=== PATIENT | female | born 1940 | race Caucasian/White ===

== ENCOUNTER → 2016-07-21 | Outpatient (CLI) | payer MEDICARE, BC ==
[2016-07-21 20:49] LABS: Blood Urea Nitrogen 21 mg/dL (7-17); Non-African American GFR(MDRD) 60 (>60 ml/min/1.73 sqM)
--- NOTE | 2016-07-22 09:05 | MR ---
MRI liver with and without contrast HISTORY: Cirrhosis Correlation to prior MRI liver with and without contrast 24 January 2015 Multiplanar multisequence and postcontrast images obtained through liver following 10 cc MultiHance I V. FINDINGS: There is motion on the exam which may limit sensitivity Irregular shape and contour of the liver is again noted. Cystic focus at the dome is stable. Gallblad danielle is inverted and courses in the subdiaphragmatic location as on prior, the gallbladder shows a thi ckened wall possibly due to ascites. There is some interval development of minimal ascites about the liver. There is no new enhancement within the liver to suggest hepatocellular carcinoma. Large varices are p resent in the upper abdomen and about the gastroesophageal junction as on prior exam. There are changes of anasarca. No retroperitoneal adenopathy. Aorta is patent. Hepatic veins, portal vein are patent. Mild ectasia of the pancreatic duct in the body is again seen. No pleural effusions evident. Small bowel folds are somewhat thickened. IMPRESSION: Interval development of ascites and findings within the gallbladder is described. Anasarc a. Evidence of portal hypertension with portosystemic shunt and cirrhosis compatible with patient's h istory. Additional nonspecific findings described above. There is motion on the exam.
== END | disposition home or self-care (01) ==
LOC: RADMRIMAIN 20:02
PROVIDERS: ATTEND Internal Medicine Gastroenterology
DX: R18.8 Other ascites (principal); Z87.19 Personal history of other diseases of the digestive system
CPT/HCPCS: 82565; 84520; 74183; A9577

== ENCOUNTER 2016-10-22 11:04 | Day surgery (SDC) | payer MEDICARE, BC ==
[2016-10-19 16:14] VITALS: BMI 20.7
[~2016-10-22 11:04] MED LIST: LACTATED RINGERS 1,000 ML IV SCH; LIDOCAINE 1% 20 ML VIAL (10MG/ML) FOR IV START INTRADERMA PRN
[2016-10-22 12:11] VITALS: TEMP 97.8
[2016-10-22] MEDS ORDERED: PROPOFOL 10 MG/ML 20 ML VIAL IV ONE (12:59)
--- NOTE | 2016-10-22 13:19 | P.PCN ---
Date of Procedure: 10/22/16 Preoperative Diagnosis: Postoperative Diagnosis: Procedure(s) Performed: BRIEF HISTORY: Patient is a 76-year-old, pleasant, white female, with history of primary biliary cirrhosis/cirrhosis of the liver and prior history of esophageal variceal bleeding is scheduled for an upper endoscopy with variceal ligation because of prior history of esophageal variceal bleeding. Last EGD with variceal ligation was done a year ago. PROCEDURE PERFORMED: Esophagogastroduodenoscopy with variceal ligation. PREOPERATIVE DIAGNOSIS: Primary biliary cirrhosis/history of esophageal variceal bleeding in the past. IV sedation per anesthesia. PROCEDURE: After informed consent was obtained, the patient was brought into the endoscopy unit. IV sedation was administered by Anesthesia under continuous monitoring. Initially the Olympus GIF-140 video endoscope was inserted into the mouth. Esophagus intubated without any difficulty. It was gradually advanced into the stomach and duodenum and carefully examined. The bulb and the second part of the duodenum appeared normal. The scope at this time was withdrawn to the stomach, adequately insufflated with air, and upon careful examination, mucosa of the antrum, body, cardia and the fundus showed changes consistent with mild portal hypertensive gastropathy. No gastric varices seen. The scope was then withdrawn into the esophagus. The GE junction was located at 39 cm from the incisors. There were 3 columns of esophageal varices noted in the distal esophagus, grade 1-2 nonbleeding varices. The rest of the esophagus appeared normal. There were no erosions or ulcerations seen. At this time the scope was removed and esophageal variceal ligation equipment was introduced into the tip of the scope and esophagus reintubated with some difficulty and was advanced into the distal esophagus. Using suction total of 3 bands were deployed in the distal esophagus with no immediate complications and the patient tolerated the procedure well. IMPRESSION: 1. Grade 1/2 distal esophageal varices status post variceal ligation as described above. 2. Mild portal hypertensive gastropathy. RECOMMENDATIONS: The findings of this examination were discussed with the patient as well as her family. She will be on a soft diet today. She'll continue with her same medications. Will plan a repeat EGD with variceal ligation in 6 months. Implants: Indications for Procedure: Operative Findings: Description of Procedure:
[2016-10-22 13:30] VITALS: PULSE 53
[2016-10-22 13:52] VITALS: BP 121/58; RESP 18
== END 2016-10-22 14:05 | disposition home or self-care (01) ==
LOC: ORWHC2ENDO 11:04
PROVIDERS: ATTEND Internal Medicine Gastroenterology
DX: I85.00 Esophageal varices without bleeding (principal); K76.6 Portal hypertension; K31.89 Other diseases of stomach and duodenum; K74.3 Primary biliary cirrhosis; K74.60 Unspecified cirrhosis of liver; Z79.899 Other long term (current) drug therapy; Z88.4 Allergy status to anesthetic agent; Z88.5 Allergy status to narcotic agent
CPT/HCPCS: 43244; J2704

== ENCOUNTER → 2018-05-11 | Outpatient (CLI) | payer MEDICARE, BC ==
--- NOTE | 2018-05-11 10:03 | US ---
EXAMINATION TYPE: US liver DATE OF EXAM: 05/11/2018 COMPARISON: MRI liver July 21, 2016 CLINICAL HISTORY: K74.60 Cirrhosis of liver. EXAM MEASUREMENTS: Liver Length: unable to accurately measure as cannot be visualized in its entirety Gallbladder Wall: 0.7 cm CBD: 0.2 cm Right Kidney: 8.3 x 3.9 x 4.4 cm Technically difficult study due to extensive midline bowel gas, patient is NPO. Pancreas: visualized portions wnl Liver: limited visualization due to extensive bowel gas, visualized portions are heterogeneous. Gallbladder: no stones visualized, unable to see in its entirety. Evidence for sonographic Donnelly's sign: No CBD: wnl Right Kidney: No hydronephrosis or masses seen Suboptimal study due to extensive overlying bowel gas per technologist. Visualized portion of pancrea s is felt within normal limits on images saved. Corresponding MRI shows several thin walled subcentim eter cystic lesions in the mid to distal body for reference coronal image 17 and 20 and larger lesion s images 14 and 15 but are not clearly identified on ultrasound images saved. Visualized portions of liver is heterogeneously hyperechoic with peripheral lobulation. Evaluation for focal masses is subop timal due to the heterogeneity. No new ascites is present. No new ductal dilatation is seen. Gallblad danielle is suboptimally evaluated without shadowing mobile gallstones seen on images saved. Limited image s right kidney show no gross hydronephrosis. IMPRESSION: Markedly suboptimal study with heterogeneous cirrhotic liver only partially imaged. Small amount of ascites on prior MRI is less well-seen on current study. Thin-walled cystic lesions throug hout the pancreatic body on MRI are not clearly identified on ultrasound. Consider further investigat ion with repeat MRI or CT.
== END | disposition home or self-care (01) ==
LOC: RADUSWWP 09:04
PROVIDERS: ATTEND Internal Medicine Gastroenterology
DX: K74.60 Unspecified cirrhosis of liver (principal)
CPT/HCPCS: 76705

== ENCOUNTER 2018-12-20 09:01 | Day surgery (SDC) | payer MEDICARE, BC ==
[2018-12-20 10:25] VITALS: TEMP 98.4
[2018-12-20] MEDS ORDERED: PROPOFOL 10 MG/ML 20 ML VIAL IV ONE (10:58)
--- NOTE | 2018-12-20 11:19 | P.PCN ---
Date of Procedure: 12/20/18 Procedure(s) Performed: Brief history: Patient is a pleasant 78-year-old white female scheduled for an elective upper endoscopy as well as colonoscopy as a part of evaluation of esophageal varices and intermittent rectal bleeding. Last upper endoscopy was done a year ago and had esophageal variceal ligation. Her last colonoscopy was in 2005. Procedure performed: Esophagogastroduodenoscopy Colonoscopy Preoperative diagnosis: Follow-up esophageal varices/history of primary biliary cirrhosis Intermittent rectal bleeding Anesthesia: MAC Procedure: After informed consent was obtained from the patient was brought into the endoscopy unit and IV sedation was administered by anesthesia under continuous monitoring. Initially upper endoscopy was done. The Olympus GF 160 video endoscope was inserted inserted into the mouth and esophagus intubated without any difficulty and was gradually advanced into the stomach and duodenum and carefully examined. The bulb and second part of the duodenum appeared normal. The scope was then withdrawn into the stomach adequately insufflated with air and upon careful examination the antrum and body, cardia and fundus had changes consistent with portal hypertensive gastropathy. No evidence of gastric varices. The scope was then withdrawn into the esophagus. The GE junction was located at 34 cm to the incisors. Small sliding Hiatal hernia noted. It appeared regular with no erythema erosions or ulcerations. Rest of the esophagus appeared normal. No evidence of esophageal varices seen Patient tolerated the procedure well. At this time the patient continued to remain sedation. Initial digital rectal examination was normal. Olympus CF 160 video colonoscope was then inserted into the rectum and gradually advanced to the cecum without any difficulty. Careful examination was performed as the scope was gradually being withdrawn. The prep was excellent. The cecum, ascending colon, transverse colon, descending colon, sigmoid colon and rectum appeared normal. Retroflexion was performed in the rectum and no lesions were noted. Patient tolerated the procedure well. Impression: 1. Upper endoscopy revealed small hiatal hernia and portal hypertensive gastropathy. No evidence of esophageal or gastric varices 2. Colonoscopy revealed grade 2 internal hemorrhoids Recommendations: Findings of this examination were discussed with the patient as well as her family. She was advised to continue the current medications. Be a high-fiber diet and fiber supplements daily. Prep and repeat upper endoscopy in 1-2 years
[2018-12-20 12:01] VITALS: BP 114/67; PULSE 78; RESP 18
== END 2018-12-20 12:01 | disposition home or self-care (01) ==
LOC: ORWHC2ENDO 09:01
PROVIDERS: ATTEND Internal Medicine Gastroenterology
DX: I85.00 Esophageal varices without bleeding (principal); K62.5 Hemorrhage of anus and rectum; K44.9 Diaphragmatic hernia without obstruction or gangrene; K76.6 Portal hypertension; K31.89 Other diseases of stomach and duodenum; K64.8 Other hemorrhoids; D64.9 Anemia, unspecified; K74.3 Primary biliary cirrhosis; I10 Essential (primary) hypertension; Z87.09 Personal history of other diseases of the respiratory system; Z91.09 Other allergy status, other than to drugs and biological substances; Z79.899 Other long term (current) drug therapy; Z88.4 Allergy status to anesthetic agent; Z88.5 Allergy status to narcotic agent
CPT/HCPCS: 45378; 43235; J2704

== ENCOUNTER 2019-07-18 22:51 | Inpatient (IN) | payer MEDICARE, BC ==
[2019-07-18] MEDS ORDERED: METOCLOPRAMIDE 5 MG/ML 2 ML VIAL IVP STA (23:01)
[2019-07-18] MEDS ORDERED: PANTOPRAZOLE 40 MG/10 ML VIAL IVP STA (23:14)
[2019-07-18] MEDS ORDERED: ONDANSETRON 4 MG/2 ML VIAL IVP PRN (23:14)
[2019-07-18] MEDS ORDERED: SODIUM CHLORIDE 0.9% 1,000 ML IV STA (23:14)
[2019-07-18] MEDS ORDERED: ONDANSETRON 4 MG/2 ML VIAL IVP STA (23:14)
--- NOTE | 2019-07-18 23:17 | ED ---
GI Bleed HPI - General Chief complaint: GI Bleed Stated complaint: GI Bleed Time Seen by Provider: 07/18/19 22:53 Source: patient, EMS, RN notes reviewed, old records reviewed Mode of arrival: EMS Limitations: no limitations - History of Present Illness Initial comments: This is an 79-year-old female to the ED for evaluation patient accepted in transfer for positive nausea vomiting coffee-ground emesis. No political organizer or serious abdominal pain mild nausea no vomiting or travel history no sick contacts. Patient is actively nauseous without vomiting. Feels lightheaded and dizzy but not weak. MD complaint: blood streaked emesis, coffee ground emesis -: days(s) Radiation: none Severity scale (1-10): 7 Quality: painless Consistency: constant Improves with: none Context: history of GI bleed, liver disease Associated Symptoms: nausea Treatments Prior to Arrival: none - Related Data Home Medications Medication Instructions Recorded Confirmed Ursodiol 300 mg PO AC-BID 12/01/14 07/18/19 Vit C/E/Zn/Coppr/Lutein/Zeaxan 1 cap PO BID 12/01/14 07/18/19 [Preservision Areds 2 Softgel] Propranolol [Inderal] 20 mg PO DAILY 01/22/15 07/18/19 Cyclobenzaprine [Flexeril] 5 mg PO TID 07/18/19 07/18/19 Docusate [Colace] 100 mg PO BID PRN 07/18/19 07/18/19 Furosemide [Lasix] 80 mg PO DAILY@0730 07/18/19 07/18/19 Naproxen 500 mg PO BID 07/18/19 07/18/19 Spironolactone 100 mg PO DAILY 07/18/19 07/18/19 Allergies Allergy/AdvReac Type Severity Reaction Status Date / Time adhesive AdvReac Rash/Hives Verified 07/18/19 23:12 codeine AdvReac Confusion Verified 07/18/19 23:12 midazolam [From Versed] AdvReac Hallucinati Verified 07/18/19 23:12 ons Review of Systems ROS Statement: Those systems with pertinent positive or pertinent negative responses have been documented in the HPI. ROS Other: All systems not noted in ROS Statement are negative. Past Medical History Past Medical History: Liver Disease Additional Past Medical History / Comment(s): HYPOTENSION, iron deficient anemia. Primary biliary chirrosis. ETIOLOGY UNKNOWN, ESOPHAGEAL VARICES. HX OF PLEURAL EFFUSION WITH THOROCENTESIS History of Any Multi-Drug Resistant Organisms: None Reported Past Surgical History: Appendectomy, Hysterectomy, Orthopedic Surgery Additional Past Surgical History / Comment(s): LEFT TOTAL KNEE LEFT KNEE I&D. LEFT KNEE MENISCES REPAIR. Carpal tunnel release, D&C x2. Bladder suspension. CATARACTS WITH lens implants bilat eyes. EGD WITH BANDING Past Anesthesia/Blood Transfusion Reactions: Previous Problems w/ Anesthesia Additional Past Anesthesia/Blood Transfusion Reaction / Comment(s): STATES VERSED IN PRE OP CAUSED HALLUCINATIONS Past Psychological History: No Psychological Hx Reported Smoking Status: Never smoker Past Alcohol Use History: None Reported Past Drug Use History: None Reported - Past Family History Mother Family Medical History: Cancer Additional Family Medical History / Comment(s): BOWEL General Exam Limitations: no limitations General appearance: alert, in no apparent distress Head exam: Present: atraumatic, normocephalic, normal inspection Eye exam: Present: normal appearance, PERRL, EOMI. Absent: scleral icterus, conjunctival injection, periorbital swelling ENT exam: Present: normal exam, mucous membranes dry Neck exam: Present: normal inspection. Absent: tenderness, meningismus, lymphadenopathy Respiratory exam: Present: normal lung sounds bilaterally. Absent: respiratory distress, wheezes, rales, rhonchi, stridor Cardiovascular Exam: Present: regular rate, normal rhythm, tachycardia, normal heart sounds. Absent: systolic murmur, diastolic murmur, rubs, gallop, clicks GI/Abdominal exam: Present: soft, normal bowel sounds. Absent: distended, tenderness, guarding, rebound, rigid Extremities exam: Present: normal inspection, full ROM, normal capillary refill. Absent: tenderness, pedal edema, joint swelling, calf tenderness Back exam: Present: normal inspection Neurological exam: Present: alert, oriented X3, CN II-XII intact Psychiatric exam: Present: normal affect, normal mood Skin exam: Present: warm, dry, intact, normal color. Absent: rash Course Vital Signs 07/18/19 23:03 Temperature 97.7 F Pulse Rate 100 Respiratory 18 Rate Blood Pressure 125/76 O2 Sat by Pulse 98 Oximetry - Reevaluation(s) Reevaluation #1: 07/18/19 23:59 medical record and transfer is reviewed Reevaluation #2: 07/18/19 23:59 Patient has no active vomiting of blood here in the ER Medical Decision Making - Medical Decision Making 79 female positive or GI bleed history of cirrhosis will admit for GI consult evaluation and treatment. Place on octreotide for likely. varical bleeding. Hi story of. - Lab Data Result diagrams: 07/18/19 23:10 Lab Results 07/18/19 Range/Units 23:10 WBC 8.2 (3.8-10.6) k/uL RBC 3.37 L (3.80-5.40) m/uL Hgb 10.5 L (11.4-16.0) gm/dL Hct 32.8 L (34.0-46.0) % MCV 97.5 (80.0-100.0) fL MCH 31.2 (25.0-35.0) pg MCHC 32.0 (31.0-37.0) g/dL RDW 14.6 (11.5-15.5) % Plt Count 147 L (150-450) k/uL Neutrophils % 68 % Lymphocytes % 22 % Monocytes % 6 % Eosinophils % 1 % Basophils % 0 % Neutrophils # 5.5 (1.3-7.7) k/uL Lymphocytes # 1.8 (1.0-4.8) k/uL Monocytes # 0.5 (0-1.0) k/uL Eosinophils # 0.1 (0-0.7) k/uL Basophils # 0.0 (0-0.2) k/uL Disposition Clinical Impression: GI bleed, Gastric varices, Upper gastrointestinal hemorrhage Disposition: ADMITTED IP TO THIS [facility] Condition: Fair Is patient prescribed a controlled substance at d/c from ED?: No
[2019-07-18 23:24] LABS: Basophils % (A) 0 %; Eosinophils # (A) 0.1 k/uL (0-0.7); Eosinophils % (A) 1 %; HCT 32.8 % (34.0-46.0); HGB 10.5 gm/dL (11.4-16.0); Lymphocytes # (A) 1.8 k/uL (1.0-4.8); Lymphocytes % (A) 22 %; MCH 31.2 pg (25.0-35.0); MCV 97.5 fL (80.0-100.0); Mean Platelet Volume 8.8; Monocytes # (A) 0.5 k/uL (0-1.0); Monocytes % (A) 6 %; Neutrophils # (A) 5.5 k/uL (1.3-7.7); Neutrophils % (A) 68 %; Platelet Count 147 k/uL (150-450); RBC 3.37 m/uL (3.80-5.40); RDW 14.6 % (11.5-15.5); WBC 8.2 k/uL (3.8-10.6)
[2019-07-18] MEDS ORDERED: OCTREOTIDE 500 MCG in SODIUM CHLORIDE 0.9% 250 ML IV ONE (23:30)
[2019-07-18] MEDS ORDERED: OCTREOTIDE 100 MCG/ML INJ IVP ONE (23:30)
[2019-07-18 23:38] LABS: Calcium 7.7 mg/dL (8.4-10.2)
[2019-07-19 00:02] LABS: Potassium 5.4 mmol/L (3.5-5.1)
[2019-07-19 01:13] LABS: Glucose,Whole Blood 112 mg/dL (75-99)
[2019-07-19] MEDS ORDERED: NALOXONE 0.4 MG/ML 1 ML VIAL IV PRN (02:11)
--- NOTE | 2019-07-19 03:26 | P.HPIM ---
History of Present Illness H&P Date: 07/19/19 The patient is an 79-year-old female with a PMH of liver cirrhosis(primary biliary cirrhosis), and esophageal varices who was transferred from [facility] due to hematemesis. The patient reports she was in her usual state of health until about 6 PM yesterday evening when she suddenly developed nausea, with subsequent vomiting of bright red blood. She also reported feeling abdominal soreness due to her multiple episodes of vomiting. The patient notes that this is similar to her previous episodes of bleeding from her varices. She reports feeling somewhat lightheaded. She denied any additional complaints including fever, chills, cough, diarrhea, recent travel, or sick contacts. She underwent an extensive evaluation in the emergency room, with laboratory evaluation showing hemoglobin 10.5, platelets 147, sodium 137, potassium 5.4, chloride 111, CO2 18, BUN 96, and creatinine 1.48. The patient was started on a Sandostatin infusion and is being admitted to the medicine service for further management. Review of Systems Pertinent positives and negatives as discussed in HPI, a complete review of systems was performed and all other systems are negative. Past Medical History Past Medical History: Liver Disease Additional Past Medical History / Comment(s): HYPOTENSION, iron deficient a nemia. Primary biliary chirrosis. ETIOLOGY UNKNOWN, ESOPHAGEAL VARICES. HX OF PLEURAL EFFUSION WITH THOROCENTESIS History of Any Multi-Drug Resistant Organisms: None Reported Past Surgical History: Appendectomy, Hysterectomy, Orthopedic Surgery Additional Past Surgical History / Comment(s): LEFT TOTAL KNEE LEFT KNEE I&D. LEFT KNEE MENISCES REPAIR. Carpal tunnel release, D&C x2. Bladder suspension. CATARACTS WITH lens implants bilat eyes. EGD WITH BANDING Past Anesthesia/Blood Transfusion Reactions: Previous Problems w/ Anesthesia Additional Past Anesthesia/Blood Transfusion Reaction / Comment(s): STATES VERSED IN PRE OP CAUSED HALLUCINATIONS Past Psychological History: No Psychological Hx Reported Smoking Status: Never smoker Past Alcohol Use History: None Reported Past Drug Use History: None Reported - Past Family History Mother Family Medical History: Cancer Additional Family Medical History / Comment(s): BOWEL Medications and Allergies Home Medications Medication Instructions Recorded Confirmed Type Ursodiol 300 mg PO AC-BID 12/01/14 07/18/19 History Vit C/E/Zn/Coppr/Lutein/Zeaxan 1 cap PO BID 12/01/14 07/18/19 History [Preservision Areds 2 Softgel] Propranolol [Inderal] 20 mg PO DAILY 01/22/15 07/18/19 History Cyclobenzaprine [Flexeril] 5 mg PO TID 07/18/19 07/18/19 History Docusate [Colace] 100 mg PO BID PRN 07/18/19 07/18/19 History Furosemide [Lasix] 80 mg PO DAILY@0730 07/18/19 07/18/19 History Naproxen 500 mg PO BID 07/18/19 07/18/19 History Spironolactone 100 mg PO DAILY 07/18/19 07/18/19 History Allergies Allergy/AdvReac Type Severity Reaction Status Date / Time adhesive AdvReac Rash/Hives Verified 07/18/19 23:12 codeine AdvReac Confusion Verified 07/18/19 23:12 midazolam [From Versed] AdvReac Hallucinati Verified 07/18/19 23:12 ons Physical Exam Vitals: Vital Signs Temp Pulse Resp BP Pulse Ox 07/19/19 00:00 87 16 113/93 96 07/18/19 23:30 85 16 114/88 96 07/18/19 23:03 97.7 F 100 18 125/76 98 Intake and Output 07/18/19 07/18/19 07/19/19 14:59 22:59 06:59 Other: Weight 58.06 kg General: Ill-appearing elderly female, no distress, appears at stated age, normal weight Derm: no unusual rashes/lesions no unusual ecchymoses, warm, dry Head: atraumatic, normocephalic, symmetric Eyes: EOMI, no lid lag, anicteric sclera, pupils equal round reactive to light ENT: Nose and ears atraumatic, no thrush, no pharyngeal erythema Neck: No thyromegaly, no cervical lymphadenopathy, trachea midline, supple Mouth: no lip lesion, mucus membranes moist Cardiovascular: S1S2 reg, no murmur, positive posterior tibial pulse bilateral, no edema, capillary refill less than 2 seconds Lungs: CTA bilateral, no rhonchi, no rales , no accessory muscle use Abdominal: soft, nontender to palpation, no guarding, no appreciable organomegaly, normal bowel sounds Ext: no gross muscle atrophy, muscle strength 5 out of 5 in all 4 extremities grossly, no contractures, Neuro: CN II-XI grossly intact, light touch intact all 4 extremities, finger to nose within normal limits, Psych: Alert, oriented, appropriate affect Results CBC & Chem 7: 07/18/19 23:10 07/18/19 23:10 Labs: Abnormal Lab Results - Last 24 Hours (Table) 07/18/19 07/18/19 Range/Units 23:10 23:10 RBC 3.37 L (3.80-5.40) m/uL Hgb 10.5 L (11.4-16.0) gm/dL Hct 32.8 L (34.0-46.0) % Plt Count 147 L (150-450) k/uL Potassium 5.4 H (3.5-5.1) mmol/L Chloride 111 H (98-107) mmol/L Carbon Dioxide 18 L (22-30) mmol/L BUN 96 H (7-17) mg/dL Creatinine 1.48 H (0.52-1.04) mg/dL Glucose 101 H (74-99) mg/dL Calcium 7.7 L (8.4-10.2) mg/dL Assessment and Plan Plan: Hematemesis in setting of history of cirrhosis and esophageal varices -GI consulted -Protonix -Normal saline -Monitor CBC -Type and screen -Anti-emetics LENCHO versus CKD -Monitor BMP for now -IVFs DVT prophylaxis -IPCDs The patient is admitted with an anticipated greater than 2 midnight stay for evaluation of hematemesis CODE STATUS: No Code Discussed with: Patient Anticipated discharge date: 2-[address]: Home A total of 35 minutes was spent on the care of this complex patient more than 50% of the time was spent in counseling and care coordination.
[2019-07-19 04:49] LABS: Basophils % (A) 0 %; Eosinophils % (A) 0 %; HGB 9.6 gm/dL (11.4-16.0); Lymphocytes # (A) 1.6 k/uL (1.0-4.8); Lymphocytes % (A) 24 %; MCH 31.3 pg (25.0-35.0); MCHC 32.2 g/dL (31.0-37.0); MCV 97.4 fL (80.0-100.0); Mean Platelet Volume 8.5; Monocytes # (A) 0.4 k/uL (0-1.0); Monocytes % (A) 6 %; Neutrophils # (A) 4.6 k/uL (1.3-7.7); Neutrophils % (A) 68 %; Platelet Count 145 k/uL (150-450); RBC 3.08 m/uL (3.80-5.40); RDW 14.6 % (11.5-15.5); WBC 6.8 k/uL (3.8-10.6)
[2019-07-19 05:04] LABS: Albumin 2.4 g/dL (3.5-5.0); Calcium 7.6 mg/dL (8.4-10.2); Potassium 5.6 mmol/L (3.5-5.1); Total Bilirubin 1.2 mg/dL (0.2-1.3)
[2019-07-19] MEDS: URSODIOL 300 MG CAP PO SCH ×2 (06:58→18:20)
[2019-07-19] MEDS: PANTOPRAZOLE 40 MG/10 ML VIAL IVP SCH ×2 (08:10→21:02)
[2019-07-19] MEDS ORDERED: LIDOCAINE 1% INJ 10MG/ML (20 ML MDV) ONE (09:35)
[2019-07-19] MEDS ORDERED: PROPOFOL 10 MG/ML 20 ML VIAL IV ONE (09:35)
[2019-07-19] MEDS ORDERED: IV FLUID CONTINUATION 1,000 ML IV ONE (09:51)
--- NOTE | 2019-07-19 10:05 | P.CONS ---
History of Present Illness - Reason for Consult Consult date: 07/19/19 GI bleed Requesting physician: Mando Herron - Chief Complaint Hematemesis - History of Present Illness 79-year-old female with a known medical history of decompensated cirrhosis with a prior history of varices and currently on treatment for ascites who presented to the hospital due to complaints of vomiting blood. The patient had been doing well reports multiple episodes of vomiting. She noted streaks of blood as well as coffee ground material in her emesis. No abdominal pain reported. Prior episode of variceal bleeding in 2017 treated with band ligation. Subsequent EGD and colonoscopy on 12/20/2018 with portal hypertensive gastropathy and no varices seen at that time and colonoscopy significant for internal hemorrhoids. Patient was found to have a hemoglobin on presentation of 10.5. Patient is unclear about the etiology of her cirrhosis but currently is on treatment for primary biliary cholangitis. She also takes Lasix and Aldactone at home as well as Inderal. No further episodes of GI bleeding since presentation to the hospital. Review of Systems REVIEW OF SYSTEMS: CONSTITUTIONAL: Denies any fevers, chills, weight change or fatigue. CARDIOVASCULAR: Denies any chest pain, palpitations high or low blood pressures RESPIRATORY: Denies any shortness of breath, hemoptysis or cough. GENITOURINARY: No dysuria or hematuria. MUSCULOSKELETAL: No weakness reported. SKIN: Denies any new rashes or lesions, jaundice or pallor. PSYCHIATRIC: Denies any depression or anxiety. NEUROLOGY: Denies headache, denies any new focal deficits. EARS/NOSE/THROAT: No recent hearing change, congestion, nasal discharge or sore throat. EYES: No pain in eyes, discharge or change in vision. GASTROINTESTINAL: As per HPI. Past Medical History Past Medical History: Liver Disease Additional Past Medical History / Comment(s): HYPOTENSION, iron deficient anemia. Primary biliary chirrosis. ETIOLOGY UNKNOWN, ESOPHAGEAL VARICES. HX OF PLEURAL EFFUSION WITH THOROCENTESIS History of Any Multi-Drug Resistant Organisms: None Reported Past Surgical History: Appendectomy, Hysterectomy, Orthopedic Surgery Additional Past Surgical History / Comment(s): LEFT TOTAL KNEE LEFT KNEE I&D. LEFT KNEE MENISCES REPAIR. Carpal tunnel release, D&C x2. Bladder suspension. C ATARACTS WITH lens implants bilat eyes. EGD WITH BANDING Past Anesthesia/Blood Transfusion Reactions: Previous Problems w/ Anesthesia Additional Past Anesthesia/Blood Transfusion Reaction / Comm: STATES VERSED IN PRE OP CAUSED HALLUCINATIONS Past Psychological History: No Psychological Hx Reported Smoking Status: Never smoker Past Alcohol Use History: None Reported Past Drug Use History: None Reported - Past Family History Mother Family Medical History: Cancer Additional Family Medical History / Comment(s): BOWEL Medications and Allergies Home Medications Medication Instructions Recorded Confirmed Type Ursodiol 300 mg PO AC-BID 12/01/14 07/18/19 History Vit C/E/Zn/Coppr/Lutein/Zeaxan 1 cap PO BID 12/01/14 07/18/19 History [Preservision Areds 2 Softgel] Propranolol [Inderal] 20 mg PO DAILY 01/22/15 07/18/19 History Cyclobenzaprine [Flexeril] 5 mg PO TID 07/18/19 07/18/19 History Docusate [Colace] 100 mg PO BID PRN 07/18/19 07/18/19 History Furosemide [Lasix] 80 mg PO DAILY@0730 07/18/19 07/18/19 History Naproxen 500 mg PO BID 07/18/19 07/18/19 History Spironolactone 100 mg PO DAILY 07/18/19 07/18/19 History Allergies Allergy/AdvReac Type Severity Reaction Status Date / Time adhesive AdvReac Rash/Hives Verified 07/18/19 23:12 codeine AdvReac Confusion Verified 07/18/19 23:12 midazolam [From Versed] AdvReac Hallucinati Verified 07/18/19 23:12 ons Physical Exam Vitals: Vital Signs Temp Pulse Resp BP Pulse Ox 07/19/19 08:00 97.8 F 90 25 H 113/57 100 07/19/19 07:00 85 19 114/49 98 07/19/19 06:30 84 18 111/51 94 L 07/19/19 06:00 87 19 106/51 98 07/19/19 05:30 79 20 98/49 98 07/19/19 05:00 75 17 98/49 97 07/19/19 04:30 131 H 24 99/61 98 07/19/19 04:00 98.2 F 81 19 94/58 96 07/19/19 03:30 90 16 86/54 07/19/19 03:00 97.8 F 92 18 92/64 97 07/19/19 02:30 78 18 113/68 07/19/19 02:00 88 25 H 104/63 07/19/19 01:30 97.8 F 78 15 122/74 97 07/19/19 01:12 122/71 07/19/19 01:00 80 18 113/68 97 07/19/19 00:00 87 16 113/93 96 07/18/19 23:30 85 16 114/88 96 07/18/19 23:03 97.7 F 100 18 125/76 98 Intake and Output 07/18/19 07/19/19 07/19/19 22:59 06:59 14:59 Intake Total 650 260 Balance 650 260 Intake: IV 130 Sodium Chloride 0.9% 1, 130 000 ml @ 130 mls/hr IV . Q7H42M STA Rx#:[id number] Intake, IV Titration 650 130 Amount Sodium Chloride 0.9% 1, 650 130 000 ml @ 130 mls/hr IV . Q7H42M STA Rx#:[id number] Other: # Voids 1 1 # Bowel Movements 1 Weight 58.06 kg On physical examination, patient appears comfortable in no apparent distress. HEAD: Normocephalic, atraumatic. EYES: No scleral icterus. No conjunctival injection. MOUTH: No lesions, tongue midline. NECK: Trachea midline, no gross abnormalities. CHEST: Clear to auscultation with no wheezing or rhonchi appreciated. HEART: Regular rate and rhythm. ABDOMEN: Soft, thin. Bowel sounds are positive. No organomegaly. No guarding or rigidity. EXTREMITIES: No pedal edema. SKIN: No rashes, no jaundice. NEUROLOGIC: Alert and oriented x3. No focal deficits. Results CBC & Chem 7: 07/19/19 04:11 07/19/19 04:11 Labs: Abnormal Lab Results - Last 24 Hours (Table) 07/18/19 07/18/19 07/19/19 Range/Units 23:10 23:10 01:12 RBC 3.37 L (3.80-5.40) m/uL Hgb 10.5 L (11.4-16.0) gm/dL Hct 32.8 L (34.0-46.0) % Plt Count 147 L (150-450) k/uL Potassium 5.4 H (3.5-5.1) mmol/L Chloride 111 H (98-107) mmol/L Carbon Dioxide 18 L (22-30) mmol/L BUN 96 H (7-17) mg/dL Creatinine 1.48 H (0.52-1.04) mg/dL Glucose 101 H (74-99) mg/dL POC Glucose (mg/dL) 112 H (75-99) mg/dL Calcium 7.7 L (8.4-10.2) mg/dL Alkaline Phosphatase (38-126) U/L Total Protein (6.3-8.2) g/dL Albumin (3.5-5.0) g/dL 07/19/19 07/19/19 Range/Units 04:11 04:11 RBC 3.08 L (3.80-5.40) m/uL Hgb 9.6 L (11.4-16.0) gm/dL Hct 30.0 L (34.0-46.0) % Plt Count 145 L (150-450) k/uL Potassium 5.6 H (3.5-5.1) mmol/L Chloride 111 H (98-107) mmol/L Carbon Dioxide 20 L (22-30) mmol/L BUN 99 H (7-17) mg/dL Creatinine 1.61 H (0.52-1.04) mg/dL Glucose 114 H (74-99) mg/dL POC Glucose (mg/dL) (75-99) mg/dL Calcium 7.6 L (8.4-10.2) mg/dL Alkaline Phosphatase 139 H (38-126) U/L Total Protein 5.0 L (6.3-8.2) g/dL Albumin 2.4 L (3.5-5.0) g/dL Assessment and Plan (1) Anemia associated with acute blood loss Narrative/Plan: 79-year-old female with a known history of decompensated cirrhosis secondary to primary biliary cholangitis who presented to the hospital due to complaints of vomiting blood. The patient reports multiple episodes of nausea and vomiting with streaks of blood and coffee-ground emesis noted. Prior variceal bleed in 2017 treated with band ligation. She underwent further EGD and colonoscopy in 11/2018 significant only for portal hypertensive gastropathy with no varices noted at that time and internal hemorrhoids on colonoscopy. No further episodes of bleeding since presentation to the hospital. Unknown etiology with differential including Tricia-Levine tear, portal hypertensive gastropathy, variceal bleed, peptic ulcer disease or other etiology. Current Visit: Yes Status: Acute Code(s): D62 - ACUTE POSTHEMORRHAGIC ANEMIA SNOMED Code(s): 083967550 (2) Decompensation of cirrhosis of liver Current Visit: Yes Status: Acute Code(s): K72.90 - HEPATIC FAILURE, UNSPECIFIED WITHOUT COMA SNOMED Code(s): 760295861 (3) GI bleed Current Visit: Yes Status: Acute Code(s): K92.2 - GASTROINTESTINAL HEMORRHAGE, UNSPECIFIED SNOMED Code(s): 60583306 (4) Gastric varices Current Visit: Yes Status: Acute Code(s): I86.4 - GASTRIC VARICES SNOMED Code(s): 07428666 (5) Upper gastrointestinal hemorrhage Current Visit: Yes Status: Acute Code(s): K92.2 - GASTROINTESTINAL HEM ORRHAGE, UNSPECIFIED SNOMED Code(s): 45620093 Plan: Supportive care Nothing by mouth Protonix IV therapy Continue Inderal therapy Continue to monitor hemoglobin and hematocrit and transfuse as needed Plan for EGD for further evaluation Further recommendations pending findings of upper endoscopy Thank you for allowing us to participate in the care of the patient we will continue to follow
--- NOTE | 2019-07-19 10:10 | P.PCN ---
Date of Procedure: 07/19/19 Description of Procedure: BRIEF HISTORY: 79-year-old female with a known medical history of decompensated cirrhosis with a prior history of varices and currently on treatment for ascites who presented to the hospital due to complaints of vomiting blood. The patient had been doing well reports multiple episodes of vomiting. She noted streaks of blood as well as coffee ground material in her emesis. No abdominal pain reported. Prior episode of variceal bleeding in 2017 treated with band ligation. Subsequent EGD and colonoscopy on 12/20/2018 with portal hypertensive gastropathy and no varices seen at that time and colonoscopy significant for internal hemorrhoids. Patient was found to have a hemoglobin on presentation of 10.5. Patient is unclear about the etiology of her cirrhosis but currently is on treatment for primary biliary cholangitis. She also takes Lasix and Aldactone at home as well as Inderal. No further episodes of GI bleeding since presentation to the hospital. PROCEDURE PERFORMED: Esophagogastroduodenoscopy. PREOPERATIVE DIAGNOSIS: Upper GI bleed, hematemesis, anemia acute blood loss, history of esophageal varices. ESTIMATED BLOOD LOSS: Minimal. IV sedation per anesthesia. PROCEDURE: After informed consent was obtained, the patient was brought into the endoscopy unit. IV sedation was administered by Anesthesia under continuous monitoring. Initially the Olympus GIF-190 video endoscope was inserted into the mouth. Esophagus intubated without any difficulty. It was gradually advanced into the stomach and duodenum and carefully examined. The bulb and the second part of the duodenum appeared normal. The scope at this time was withdrawn to the stomach, adequately insufflated with air, and upon careful examination, mucosa of the antrum, body, cardia and the fundus was significant for diffuse punctate erythema in the body, cardia and fundus of the stomach consistent with portal hypertensive gastropathy. The scope was then withdrawn into the esophagus. The GE junction was located at 36 cm from the incisors, with a 1 cm hiatal hernia noted. A small superficial nonbleeding tear just proximal to the GE junction was noted consistent with a Tricia-Levine tear. The distal esophagus showed evidence of scarring from prior banding as well as a few small nonbleeding distal esophageal varices without high risk stigmata for bleeding or evidence of recent bleeding. The patient tolerated the procedure well. IMPRESSION: 1. Nonbleeding Tricia-Levine tear located proximal to the GE junction. 2. Small nonbleeding distal esophageal varices without high risk stigmata for bleeding or evidence of recent bleed. 3. Small hiatal hernia. 4. Mild portal hypertensive gastropathy. RECOMMENDATIONS: The findings of this examination were discussed with the patient. Okay for full liquid diets. Okay to continue Lasix and Aldactone. Continue monitor hemoglobin and hematocrit and transfuse as needed. Continue Protonix 40 mg IV twice daily. Okay to continue Inderal.
--- NOTE | 2019-07-19 12:23 | P.CNPUL ---
History of Present Illness Consult date: 07/19/19 Requesting physician: Mando Herron Reason for consult: other (Upper GI bleeding) Chief complaint: Vomiting blood History of present illness: This is an 79-year-old female with history of liver cirrhosis, history of esophageal varices, familiar to my service, I saw this patient in few years back when she had chylothorax. And she underwent thoracentesis, did not require any other intervention at the time. Patient has been following up with Dr. Schultz regarding her liver cirrhosis, and she had prior episode of variceal bleeding back in 2017, treated with band ligation. Subsequent EGD and colonoscopy on 12/20/2018 showed portal hypertensive gastropathy no varices however she had internal hemorrhoids. Patient presented to the ER in [place] yesterday complaining of vomiting blood. She had a sudden episode of large amount of emesis/hematemesis. Blood was bright red. Considering the patient known history of esophageal varices, arrangements were made to transfer the patient to [facility]. I was notified about this patient last night from the ER physician, and accepted the patient to transfer to the ICU. Over the last 12 hours since admission, the patient seems to be doing quite well. Her hemoglobin is 9.6, patient did not require any blood transfusion. Her basic metabolic profile showed hypokalemia with elevated BUN of 99 creatinine of 1.61. EGD this morning done by gastroenterology showed nonbleeding Tricia-Levine tear located proximal to the EG junction. Small nonbleeding distal esophageal varices noted without high risk stigmata of bleeding or evidence of recent bleed. She was also noted to have mild portal hypertensive gastropathy. At any rate patient is doing great, obviously the bleeding was more or less a Tricia- Levine tear bleed, I feel at this point the patient could be transferred out of the ICU to a regular medical floor, and possibly discharge home later today if cleared by gastroenterology. Review of Systems CONSTITUTIONAL: No fever chills or weight loss. CARDIOVASCULAR: No chest pain or orthopnea or palpitations. RESPIRATORY: No cough wheezing shortness of breath or hemoptysis GENITOURINARY: No dysuria frequency urgency or hematuria MUSCULOSKELETAL: No limitation in range of motion, no deformities. SKIN: No rashes, no cyanosis, no pruritus.. PSYCHIATRIC: Denies generalized anxiety disorder symptoms or depression.. NEUROLOGY: No headache no blurred vision or dizziness. EARS/NOSE/THROAT: Denies sore throat or earache or nasal congestion.. EYES: Denies any diplopia or blurred vision GASTROINTESTINAL: Bright red blood emesis. No abdominal pain. Past Medical History Past Medical History: Liver Disease Additional Past Medical History / Comment(s): HYPOTENSION, iron deficient anemia. Primary biliary chirrosis. ETIOLOGY UNKNOWN, ESOPHAGEAL VARICES. HX OF PLEURAL EFFUSION WITH THOROCENTESIS History of Any Multi-Drug Resistant Organisms: None Reported Past Surgical History: Appendectomy, Hysterectomy, Orthopedic Surgery Additional Past Surgical History / Comment(s): LEFT TOTAL KNEE LEFT KNEE I&D. LEFT KNEE MENISCES REPAIR. Carpal tunnel release, D&C x2. Bladder suspension. CATARACTS WITH lens implants bilat eyes. EGD WITH BANDING Past Anesthesia/Blood Transfusion Reactions: Previous Problems w/ Anesthesia Additional Past Anesthesia/Blood Transfusion Reaction / Comment(s): STATES VERSED IN PRE OP CAUSED HALLUCINATIONS Past Psychological History: No Psychological Hx Reported Smoking Status: Never smoker Past Alcohol Use History: None Reported Past Drug Use History: None Reported - Past Family History Mother Family Medical History: Cancer Additional Family Medical History / Comment(s): BOWEL Medications and Allergies Home Medications Medication Instructions Recorded Confirmed Type Ursodiol 300 mg PO AC-BID 12/01/14 07/18/19 History Vit C/E/Zn/Coppr/Lutein/Zeaxan 1 cap PO BID 12/01/14 07/18/19 History [Preservision Areds 2 Softgel] Propranolol [Inderal] 20 mg PO DAILY 01/22/15 07/18/19 History Cyclobenzaprine [Flexeril] 5 mg PO TID 07/18/19 07/18/19 History Docusate [Colace] 100 mg PO BID PRN 07/18/19 07/18/19 History Furosemide [Lasix] 80 mg PO DAILY@0730 07/18/19 07/18/19 History Naproxen 500 mg PO BID 07/18/19 07/18/19 History Spironolactone 100 mg PO DAILY 07/18/19 07/18/19 History Allergies Allergy/AdvReac Type Severity Reaction Status Date / Time adhesive AdvReac Rash/Hives Verified 07/18/19 23:12 codeine AdvReac Confusion Verified 03/18/20 23:12 midazolam [From Versed] AdvReac Hallucinati Verified 07/18/19 23:12 ons Physical Exam Vitals: Vital Signs Temp Pulse Resp BP Pulse Ox 07/19/19 08:00 97.8 F 90 25 H 113/57 100 07/19/19 07:00 85 19 114/49 98 07/19/19 06:30 84 18 111/51 94 L 07/19/19 06:00 87 19 106/51 98 07/19/19 05:30 79 20 98/49 98 07/19/19 05:00 75 17 98/49 97 07/19/19 04:30 131 H 24 99/61 98 07/19/19 04:00 98.2 F 81 19 94/58 96 07/19/19 03:30 90 16 86/54 07/19/19 03:00 97.8 F 92 18 92/64 97 07/19/19 02:30 78 18 113/68 07/19/19 02:00 88 25 H 104/63 07/19/19 01:30 97.8 F 78 15 122/74 97 07/19/19 01:12 122/71 07/19/19 01:00 80 18 113/68 97 07/19/19 00:00 87 16 113/93 96 07/18/19 23:30 85 16 114/88 96 07/18/19 23:03 97.7 F 100 18 125/76 98 Intake and Output 07/18/19 07/19/19 07/19/19 22:59 06:59 14:59 Intake Total 650 460 Balance 650 460 Intake: IV 330 Sodium Chloride 0.9% 1, 130 000 ml @ 130 mls/hr IV . Q7H42M STA Rx#:[id number] Intake, IV Titration 650 130 Amount Sodium Chloride 0.9% 1, 650 130 000 ml @ 130 mls/hr IV . Q7H42M STA Rx#:[id number] Other: # Voids 1 1 # Bowel Movements 1 Weight 58.06 kg Physical Exam: Revealed an 79-year-old female in no distress. Extremely pleasant. On room air. Head: Atraumatic, normocephalic. HEENT:[Neck is supple.] [No neck masses.] [No thyromegaly.] [No JVD.] Chest: [Clear throughout, no crackles, no rhonchi, no wheezes.] Cardiac Exam: [Normal S1 and S2, no S3 gallop, no murmur.] Abdomen: [Soft, nontender, no megaly, no rebound, no guarding, normal bowel sounds.] Extremities: [No clubbing, no edema, no cyanosis.] Neurological Exam: [No focal neurologic deficit.] Alert and oriented 3. Psychiatric: Normal mood affect and normal mental status examination. Skin: No rashes, no jaundice. Lymphatics: No lymphadenopathy. Musculoskeletal no limitation in range of motion, no deformities, no weakness. Results - Laboratory Findings CBC and BMP: 07/19/19 04:11 07/19/19 04:11 Abnormal lab findings: Abnormal Labs 07/18/19 07/18/19 07/19/19 23:10 23:10 01:12 RBC 3.37 L Hgb 10.5 L Hct 32.8 L Plt Count 147 L Potassium 5.4 H Chloride 111 H Carbon Dioxide 18 L BUN 96 H Creatinine 1.48 H Glucose 101 H POC Glucose (mg/dL) 112 H Calcium 7.7 L Alkaline Phosphatase Total Protein Albumin 07/19/19 07/19/19 04:11 04:11 RBC 3.08 L Hgb 9.6 L Hct 30.0 L Plt Count 145 L Potassium 5.6 H Chloride 111 H Carbon Dioxide 20 L BUN 99 H Creatinine 1.61 H Glucose 114 H POC Glucose (mg/dL) Calcium 7.6 L Alkaline Phosphatase 139 H Total Protein 5.0 L Albumin 2.4 L Assessment and Plan Assessment: Impression: Acute upper GI bleeding secondary to Tricia-Levine tear History of liver cirrhosis History of portal gastropathy History of gastric varices, presently none bleeding History of chylothorax Recommendation: Continue present supportive care measures. Continue Protonix, Continue Inderal. Consider discharging the patient home today if cleared by gastroenterology and follow-up with him on outpatient basis. Time with Patient: Greater than 30
--- NOTE | 2019-07-19 15:07 | P.PN ---
Progress Note - Text Progress Note Date: 07/19/19 Patient was seen. No more hematemesis since admission to ICU. EGD done which shows nonbleeding Tricia-Levine tear, distal esophageal varices, hiatal hernia and portal hypertensive gastropathy. Patient complains of bloating sensation in her abdomen. She denies any chest pain, shortness of breath or palpitations. No nausea or vomiting. No fever or chills. From ICU. Her hemoglobin has been maintaining from 10.5-9.6. Patient to be continued on octreotide drip. Continue Protonix IV twice a day. Continue Aldactone. Continue ursodiol. We will repeat her potassium and give her lactulose if needed. Patient is pending clinical improvement.
[2019-07-19] MEDS: SPIRONOLACTONE 25 MG TAB PO SCH (16:55)
[2019-07-20] MEDS: URSODIOL 300 MG CAP PO SCH ×2 (07:38→17:13)
[2019-07-20] MEDS: SPIRONOLACTONE 25 MG TAB PO SCH (07:38)
[2019-07-20] MEDS: PANTOPRAZOLE 40 MG/10 ML VIAL IVP SCH ×2 (07:39→20:22)
[2019-07-20 08:03] LABS: Basophils % (A) 0 %; Eosinophils # (A) 0.3 k/uL (0-0.7); Eosinophils % (A) 4 %; HCT 25.2 % (34.0-46.0); Lymphocytes % (A) 28 %; MCH 31.9 pg (25.0-35.0); MCV 99.6 fL (80.0-100.0); Macrocytosis Slight; Mean Platelet Volume 8.3; Monocytes # (A) 0.5 k/uL (0-1.0); Monocytes % (A) 8 %; Neutrophils % (A) 57 %; Platelet Count 148 k/uL (150-450); RBC 2.53 m/uL (3.80-5.40); RDW 14.9 % (11.5-15.5)
[2019-07-20 08:06] LABS: HGB 8.1 gm/dL (11.4-16.0)
[2019-07-20 09:04] LABS: Potassium 4.5 mmol/L (3.5-5.1)
--- NOTE | 2019-07-20 09:15 | P.PN ---
Subjective Progress Note Date: 07/20/19 On 07/20/2019 patient seen in follow-up on general medical floor, she is resting comfortably in bed, no acute distress, just complaining of being fatigued, she did have a couple of black bowel movements since yesterday, no vomiting, she remains on PPI therapy with Protonix twice daily, she is tolerating full liquid diet although she states she has no appetite. Vital signs stable overnight. Remains pulse ox is 98%, hemodynamically patient stable, afebrile, today's hemoglobin is 8.1, profile is improving, with BUN down to 72 from 99, and creatinine down to 1.34 Objective - Vital Signs Vital signs: Vital Signs Temp 97.5 F L 07/20/19 07:00 Pulse 71 07/20/19 07:00 Resp 17 07/20/19 07:00 BP 133/55 07/20/19 07:00 Pulse Ox 98 07/20/19 07:00 Intake & Output 07/19/19 07/20/19 07/20/19 18:59 06:59 18:59 Intake Total 850 280 Output Total 200 Balance 850 80 Intake: IV 720 280 Sodium Chloride 0.9% 1, 520 280 000 ml @ 130 mls/hr IV . Q7H42M STA Rx#:[id number] Intake, IV Titration 130 Amount Sodium Chloride 0.9% 1, 130 000 ml @ 130 mls/hr IV . Q7H42M STA Rx#:[id number] Output: Urine 200 Other: # Voids 1 1 1 # Bowel Movements 1 1 - Exam GENERAL EXAM: Alert, very pleasant, 79-year-old white female, room air pulse ox of 98% comfortable in no apparent distress. HEAD: Normocephalic/atraumatic. EYES: Normal reaction of pupils, equal size. Conjunctiva pink, sclera white. NOSE: Clear with pink turbinates. THROAT: No erythema or exudates. NECK: No masses, no JVD, no thyroid enlargement, no adenopathy. CHEST: No chest wall deformity. Symmetrical expansion. LUNGS: Equal air entry with no crackles, wheeze, rhonchi or dullness. CVS: Regular rate and rhythm, normal S1 and S2, no gallops, no murmurs, no rubs ABDOMEN: Soft, nontender. No hepatosplenomegaly, normal bowel sounds, no guarding or rigidity. EXTREMITIES: No clubbing, no edema, no cyanosis, 2+ pulses and upper and lower extremities. MUSCULOSKELETAL: Muscle strength and tone normal. SPINE: No scoliosis or deformity SKIN: No rashes CENTRAL NERVOUS SYSTEM: Alert and oriented -3. No focal deficits, tone is normal in all 4 extremities. PSYCHIATRIC: Alert and oriented -3. Appropriate affect. Intact judgment and insight. - Labs CBC & Chem 7: 07/20/19 06:14 07/20/19 06:14 Labs: Abnormal Lab Results - Last 24 Hours (Table) 07/20/19 07/20/19 Range/Units 06:14 06:14 RBC 2.53 L (3.80-5.40) m/uL Hgb 8.1 L D (11.4-16.0) gm/dL Hct 25.2 L (34.0-46.0) % Plt Count 148 L (150-450) k/uL Chloride 118 H (98-107) mmol/L Carbon Dioxide 17 L (22-30) mmol/L BUN 72 H (7-17) mg/dL Creatinine 1.34 H (0.52-1.04) mg/dL Calcium 8.0 L (8.4-10.2) mg/dL Assessment and Plan Plan: Assessment: #1. Acute upper GI bleeding secondary to Tricia-Levine tear #2. History of liver cirrhosis #3. History of portal gastropathy #4. History of gastric varices, presently none bleeding #5. History of chylothorax Plan: Clinically patient stable, hemodynamically patient is stable, tolerating oral diet, no hematemesis, still passing some dark stools, today's hemoglobin is 8.1. From pulmonary/critical care perspective patient has been cleared for discharge home today. Our service will sign off and follow on as-needed basis I performed a history & physical examination of the patient and discussed their management with my nurse practitioner, Judy Farrell. I reviewed the nurse practitioner's note and agree with the documented findings and plan of care. Lung sounds are positive for clear breath sounds. The findings and the impression was discussed with the patient. I attest to the documentation by the nurse practitioner. Time with Patient: Less than 30
--- NOTE | 2019-07-20 14:41 | P.PN ---
Subjective Progress Note Date: 07/20/19 Principal diagnosis: Upper GI bleed Patient was seen and examined. No acute events overnight. Patient reports no more hematemesis. Patient denies any dizziness, chest pain, shortness of breath or palpitations. No nausea or vomiting. No fever or chills. When case was discussed with RN, RN reports that patient does feel dizzy especially when going from a seated to a standing position. Objective - Vital Signs Vital signs: Vital Signs Temp 97.5 F L 07/20/19 07:00 Pulse 71 07/20/19 07:00 Resp 17 07/20/19 07:50 BP 133/55 07/20/19 07:00 Pulse Ox 98 07/20/19 07:00 Intake & Output 07/19/19 07/20/19 07/20/19 18:59 06:59 18:59 Intake Total 850 280 Output Total 200 Balance 850 80 Intake: IV 720 280 Sodium Chloride 0.9% 1, 520 280 000 ml @ 130 mls/hr IV . Q7H42M STA Rx#:[id number] Intake, IV Titration 130 Amount Sodium Chloride 0.9% 1, 130 000 ml @ 130 mls/hr IV . Q7H42M STA Rx#:[id number] Output: Urine 200 Other: # Voids 1 1 2 # Bowel Movements 1 1 - Exam General: [non toxic], [no distress], [appears at stated age] Derm: [warm], [dry] Head: [atraumatic], [normocephalic], [symmetric] Eyes: [EOMI], [no lid lag], [anicteric sclera] Mouth: [no lip lesion], [mucus membranes moist] Cardiovascular: [S1S2 reg], [no murmur], [positive DP pulse bilateral], Lungs: [CTA bilateral], [no rhonchi, no rales] , [no accessory muscle use] Abdominal: [soft], [ nontender to palpation], [no guarding], [no appreciable organomegaly] Ext: [no gross muscle atrophy], [no edema], [no contractures] Neuro: [no focal neuro deficits] Psych: [Alert], [oriented], [appropriate affect] - Labs CBC & Chem 7: 07/20/19 06:14 03/20/20 06:14 Labs: Abnormal Lab Results - Last 24 Hours (Table) 07/20/19 07/20/19 Range/Units 06:14 06:14 RBC 2.53 L (3.80-5.40) m/uL Hgb 8.1 L D (11.4-16.0) gm/dL Hct 25.2 L (34.0-46.0) % Plt Count 148 L (150-450) k/uL Chloride 118 H (98-107) mmol/L Carbon Dioxide 17 L (22-30) mmol/L BUN 72 H (7-17) mg/dL Creatinine 1.34 H (0.52-1.04) mg/dL Calcium 8.0 L (8.4-10.2) mg/dL Assessment and Plan Assessment: Hematemesis in the setting of cirrhosis, esophageal varices and history of Tricia-Levine Hyperchloremic metabolic acidosis Acute kidney injury Lightheadedness likely orthostatic Patient's hemoglobin this morning is 8.1 from 9.6. She has no further hematemesis. Endoscopic evaluation showed nonbleeding Tricia-Levine tear, distal esophageal varices. Continue Protonix IV twice a day. Zofran as needed for nausea or vomiting. Continue ursodiol. Continue Aldactone. Given her lightheadedness which is likely orthostatic, will continue to monitor the patient overnight and repeat her hemoglobin tomorrow morning. Her hyperchloremic metabolic acidosis is likely related to infused IVF. Her creatinine has improved from 1.61-1.34. We will continue normal saline at 50 mL per hour. Orthostatic vitals will be ordered. She is pending clinical improvement. Likely DC tomorrow.
[2019-07-20] MEDS: SODIUM CHLORIDE 0.9% 1,000 ML IV SCH (14:43)
[2019-07-20 15:43] LABS: HGB 8.2 gm/dL (11.4-16.0); MCH 31.4 pg (25.0-35.0); MCHC 31.6 g/dL (31.0-37.0); MCV 99.2 fL (80.0-100.0); Macrocytosis Slight; Mean Platelet Volume 8.3; Platelet Count 144 k/uL (150-450); RBC 2.63 m/uL (3.80-5.40); RDW 15.2 % (11.5-15.5); WBC 7.4 k/uL (3.8-10.6)
[2019-07-20 16:26] LABS: % Iron Saturation 28.74 (12.00-45.00)
[2019-07-20 16:28] VITALS: RESP 18
[2019-07-20 16:34] LABS: Ferritin 111.1 ng/mL (10.0-291.0)
--- NOTE | 2019-07-20 20:13 | P.PN ---
Subjective Progress Note Date: 07/20/19 Principal diagnosis: Tricia-Levine tear, portal hypertensive gastropathy, small esophageal varices, anemia of acute blood loss Patient seen lying in bed no abdominal pain reported. She denies any signs or symptoms of bleeding per nursing she had a dark colored bowel movements this morning. Objective - Vital Signs Vital signs: Vital Signs Temp 98 F 07/20/19 19:17 Pulse 67 07/20/19 19:17 Resp 18 07/20/19 19:17 BP 131/55 07/20/19 19:17 Pulse Ox 92 L 07/20/19 19:17 Intake & Output 07/20/19 07/20/19 07/21/19 06:59 18:59 06:59 Intake Total 280 Output Total 200 Balance 80 Intake: IV 280 Sodium Chloride 0.9% 1, 280 000 ml @ 130 mls/hr IV . Q7H42M STA Rx#:[id number] Output: Urine 200 Other: # Voids 1 2 # Bowel Movements 1 - Exam On physical examination, patient appears comfortable in no apparent distress. HEAD: Normocephalic, atraumatic. EYES: No scleral icterus. No conjunctival injection. MOUTH: No lesions, tongue midline. NECK: Trachea midline, no gross abnormalities. ABDOMEN: Soft, nontender to palpation. Bowel sounds are positive. No organomegaly. No guarding or rigidity. EXTREMITIES: No pedal edema. SKIN: No rashes, no jaundice. NEUROLOGIC: Alert and oriented x3. No focal deficits. 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 The patient reports multiple episodes of nausea and vomiting with streaks of blood and coffee-ground emesis noted. Prior variceal bleed in 2017 treated with band ligation. She underwent further EGD and colonoscopy in 11/2018 significant only for portal hypertensive gastropathy with no varices noted at that time and internal hemorrhoids on colonoscopy. No further episodes of bleeding since presentation to the hospital. EGD performed yesterday with nonbleeding Tricia-Levine tear, small distal esophageal varices without red iram sign or evidence of recent bleed and portal hypertensive gastropathy. Likely source of bleeding was Tricia-Levine tear. She did have 1 dark bowel movement today and fall in hemoglobin however on repeat blood draw stable at greater than 8. Current Visit: Yes Status: Acute Code(s): D62 - ACUTE POSTHEMORRHAGIC ANEMIA SNOMED Code(s): 028351575 (2) Decompensation of cirrhosis of liver Current Visit: Yes Status: Acute Code(s): K72.90 - HEPATIC FAILURE, UNSPECIFIED WITHOUT COMA SNOMED Code(s): 419747955 (3) GI bleed Current Visit: Yes Status: Acute Code(s): K92.2 - GASTROINTESTINAL HEMORRHA GE, UNSPECIFIED SNOMED Code(s): 76574717 (4) Gastric varices Current Visit: Yes Status: Acute Code(s): I86.4 - GASTRIC VARICES SNOMED Code(s): 69344445 (5) Upper gastrointestinal hemorrhage Current Visit: Yes Status: Acute Code(s): K92.2 - GASTROINTESTINAL HEMORRHAGE, UNSPECIFIED SNOMED Code(s): 92216545 Plan: Supportive care Okay for diet Protonix IV therapy Continue Inderal therapy Continue to monitor hemoglobin and hematocrit and transfuse as needed Hemoglobin stable on repeat blood draw this afternoon, if hemoglobin remains stable and no further signs of bleeding okay for discharge tomorrow Thank you for allowing us to participate in the care of the patient we will continue to follow
[2019-07-20] MEDS ORDERED: BACITRACIN 500 UNIT/GM OINT 28.4 GM TUBE TOPICAL SCH (21:00)
[2019-07-20 22:44] LABS: Reticulocyte % 2.32 % (0.10-1.80)
[2019-07-21 06:44] LABS: Basophils % (A) 0 %; Eosinophils # (A) 0.1 k/uL (0-0.7); Eosinophils % (A) 1 %; HCT 25.3 % (34.0-46.0); HGB 8.1 gm/dL (11.4-16.0); Lymphocytes # (A) 1.8 k/uL (1.0-4.8); Lymphocytes % (A) 19 %; MCH 31.6 pg (25.0-35.0); MCHC 32.1 g/dL (31.0-37.0); MCV 98.4 fL (80.0-100.0); Macrocytosis Slight; Mean Platelet Volume 7.9; Monocytes # (A) 0.6 k/uL (0-1.0); Monocytes % (A) 6 %; Neutrophils # (A) 6.5 k/uL (1.3-7.7); Neutrophils % (A) 70 %; Platelet Count 163 k/uL (150-450); RBC 2.57 m/uL (3.80-5.40); RDW 15.3 % (11.5-15.5); WBC 9.3 k/uL (3.8-10.6)
[2019-07-21] MEDS: PANTOPRAZOLE 40 MG/10 ML VIAL IVP SCH (07:20)
[2019-07-21] MEDS: SPIRONOLACTONE 25 MG TAB PO SCH (07:21)
[2019-07-21] MEDS: URSODIOL 300 MG CAP PO SCH (07:21)
[2019-07-21] MEDS: SODIUM CHLORIDE 0.9% 1,000 ML IV SCH (07:23)
[2019-07-21 08:38] VITALS: BP 137/70; PULSE 105; TEMP 97.8
--- NOTE | 2019-07-21 10:11 | P.DS ---
Providers Date of admission: 07/18/19 23:17 Expected date of discharge: 07/21/19 Attending physician: Mando Herron MD Consults: 07/18/19 23:17 Consult Physician Routine Consulting Provider: Anum Castillo Consult Reason/Comments: gib,known Do you want consulting provider notified?: Yes 07/19/19 00:03 Consult Physician Routine Consulting Provider: Simón Domingo Consult Reason/Comments: icu Do you want consulting provider notified?: Yes Primary care physician: Ascencion Eleanor Slater Hospital Course: The patient is an 79-year-old female with a PMH of liver cirrhosis(primary biliary cirrhosis), and esophageal varices who was transferred from [facility] due to hematemesis. The patient reports she was in her usual state of health until about 6 PM yesterday evening when she suddenly developed nausea, with subsequent vomiting of bright red blood. She underwent an extensive evaluation in the emergency room, with laboratory evaluation showing hemoglobin 10.5, platelets 147, sodium 137, potassium 5.4, chloride 111, CO2 18, BUN 96, and creatinine 1.48. The patient was started on a Sandostatin infusion and is being admitted to the medicine service for further management. Patient's hemoglobin this morning is 8.1 from 9.6 on admission. She has no further hematemesis. Endoscopic evaluation showed nonbleeding Tricia-Levine tear, distal esophageal varices. She did have some lightheadedness and orthostats were negative. Her hyperchloremic metabolic acidosis was likely related to infused IVF. Her creatinine has improved from 1.61-1.34 on discharge. Patient was seen and examined. No acute events overnight. Patient reports no more hematemesis. She denies any chest pain, shortness of breath or palpitations. No dizziness. Wanting to go home. General: [non toxic], [no distress], [appears at stated age] Derm: [warm], [dry] Head: [atraumatic], [normocephalic], [symmetric] Eyes: [EOMI], [no lid lag], [anicteric sclera] Mouth: [no lip lesion], [mucus membranes moist] Cardiovascular: [S1S2 reg], [no murmur], [positive DP pulse bilateral], Lungs: [CTA bilateral], [no rhonchi, no rales] , [no accessory muscle use] Abdominal: [soft], [ nontender to palpation], [no guarding], [no appreciable organomegaly] Ext: [no gross muscle atrophy], [no edema], [no contractures] Neuro: [no focal neuro deficits] Psych: [Alert], [oriented], [appropriate affect] Hematemesis in the setting of cirrhosis, esophageal varices and history of Tricia-Levine Hyperchloremic metabolic acidosis Acute kidney injury Lightheadedness likely orthostatic Patient's hemoglobin has remained stable from 9.6 on admission to 8.1 this morning. Endoscopic evaluation revealed nonbleeding Tricia-Levine tear, distal esophageal varices. She'll be discharged home on Protonix by mouth. She will need to continue Ursodio and Aldactone. Patient denies any lightheadedness this morning. She was given IVF overnight. Patient will be discharged today with a close follow-up with her PCP within 3 days. Repeat CBC in 3 days. Follow-up with GI within 1 week of discharge. Patient verbalized understanding of the plan. This complex discharge took about 35 minutes to complete. Procedures: Endoscopic evaluation Patient Condition at Discharge: Stable Plan - Discharge Summary Discharge Rx Participant: Yes New Discharge Prescriptions: New Pantoprazole Sodium [Protonix] 40 mg PO DAILY #90 tablet. Continue Ursodiol 300 mg PO AC-BID Vit C/E/Zn/Coppr/Lutein/Zeaxan [Preservision Areds 2 Softgel] 1 cap PO BID Propranolol [Inderal] 20 mg PO DAILY Spironolactone 100 mg PO DAILY Furosemide [Lasix] 80 mg PO DAILY@0730 Docusate [Colace] 100 mg PO BID PRN PRN Reason: Constipation Cyclobenzaprine [Flexeril] 5 mg PO TID Naproxen 500 mg PO BID Discharge Medication List Ursodiol 300 mg PO AC-BID 12/01/14 [History] Vit C/E/Zn/Coppr/Lutein/Zeaxan [Preservision Areds 2 Softgel] 1 cap PO BID 12/01/14 [History] Propranolol [Inderal] 20 mg PO DAILY 01/22/15 [History] Cyclobenzaprine [Flexeril] 5 mg PO TID 07/18/19 [History] Docusate [Colace] 100 mg PO BID PRN 07/18/19 [History] Furosemide [Lasix] 80 mg PO DAILY@0730 07/18/19 [History] Naproxen 500 mg PO BID 07/18/19 [History] Spironolactone 100 mg PO DAILY 07/18/19 [History] Pantoprazole Sodium [Protonix] 40 mg PO DAILY #90 tablet. 07/21/19 [Rx] Follow up Appointment(s)/Referral(s): Ascencion Polanco MD [Primary Care Provider] - 1-2 days Garland Carrillo MD [STAFF PHYSICIAN] - 1 Week Ambulatory/Diagnostic Orders: Complete Blood Count w/diff [LAB.AMB] Time Frame: 1 Day, Location: None Selected Activity/Diet/Wound Care/Special Instructions: Diet: Low-salt Follow-up with PCP within 3 days. Follow-up with GI within 1 week of discharge. Repeat CBC tomorrow. Discharge Disposition: HOME SELF-CARE
--- NOTE | 2019-07-24 15:35 | CDI ---
Documentation Clarification Form Date: 07/24/19 From: Jana Varner Phone: If you have a question about this query, please contact Celina Stevenson, Music Grapher at [phone] between 8am and 5pm. Admit Date: 07/18/19 Discharge Date: 07/21/19 Patient Name: Christina Garcia Visit Number: [id number] ATTENTION: The Clinical Documentation Specialists (CDI) and [facility] Coding Staff appreciate your assistance in clarifying documentation. Please respond to the clarification below the line at the bottom and electronically sign. The CDI & [facility] Coding staff will review the response and follow-up if needed. Please note: Queries are made part of the Legal Health Record. If you have any questions, please contact the author of this message via ITS. Dear Dr. Herron LENCHO vs CKD is documented in the H&P History/Risk Factors: Patients Historical BUN/CR/GFR: 07/21/16 GFR 60 collected at [facility] Clinical Indicators: Current BUN/CR/GFR: 07/17 - 96/1.48/33 07/18 - 99/1.61/30 07/19 - 72/1.34/38 Treatment: NS at 130/ mls/hr Consults: Dr. Domingo - acute upper GI bleed secondary to Mallary-Levine tear, liver cirrhosis, portal gastropathy. Dr. Carrillo - acute blood loss anemia, decompensation of cirrhosis of liver, GI bleed In order to capture the severity of condition, please clarify the stage of the CKD, if known: CKD Ruled Out CKD Stage 1 (GFR > 90) CKD Stage 2 (GFR 60-89) CKD Stage 3 (GFR 30-59) CKD Stage 4 (GFR 15-29) CKD Stage 5 (GFR <15) ESRD Other, please specify Unable to determine Response: CKD Stage 3 MTDD
== END 2019-07-21 12:20 | disposition home or self-care (01) | DRG 369 ==
LOC: EC 22:51 → 3SCARD 23:17 → 2SICU 23:17 → UNDOADMIN 23:17 → 4SSUR 07-19 17:47
PROVIDERS: ADMIT Internal Medicine; ATTEND Internal Medicine
PROC: 0DJ08ZZ Inspection of Upper Intestinal Tract, Via Natural or Artificial Opening Endoscopic (ICD-10-PCS; principal; 2019-07-19 07:50)
DX: K22.6 Gastro-esophageal laceration-hemorrhage syndrome (principal); D62 Acute posthemorrhagic anemia; E87.2 Acidosis; K76.6 Portal hypertension; N17.9 Acute kidney failure, unspecified; I85.10 Secondary esophageal varices without bleeding; K74.3 Primary biliary cirrhosis; N18.3 Chronic kidney disease, stage 3 (moderate); K44.9 Diaphragmatic hernia without obstruction or gangrene; K64.8 Other hemorrhoids; K31.89 Other diseases of stomach and duodenum; I95.1 Orthostatic hypotension; T50.995A Adverse effect of other drugs, medicaments and biological substances, initial encounter; Z79.899 Other long term (current) drug therapy; Z90.710 Acquired absence of both cervix and uterus; Z90.49 Acquired absence of other specified parts of digestive tract; Z98.42 Cataract extraction status, left eye; Z98.41 Cataract extraction status, right eye; Z96.1 Presence of intraocular lens; Z88.5 Allergy status to narcotic agent; Z88.8 Allergy status to other drugs, medicaments and biological substances; Z80.0 Family history of malignant neoplasm of digestive organs
CPT/HCPCS: 36415; 43235; 80048; 80053; 82728; 83540; 83550; 84132; 85025; 85027; 85045; 86850; 86900; 86901; 96365; 96375; 96376; 99285